=== PATIENT | male | born 1975 | race African-American/Black ===

== ENCOUNTER 2021-07-28 12:25 | Emergency (ER) | payer MEDICAID ==
[~2021-07-28] VITALS: Ht 170.2 cm; Wt 76.0 kg
[2021-07-28 13:04] VITALS: BP 168/122
== END 2021-07-28 13:21 | disposition home or self-care (01) ==
LOC: EDBD 12:25 → ED 12:25
DX: S90.01XA Contusion of right ankle, initial encounter (principal); I10 Essential (primary) hypertension; W22.8XXA Striking against or struck by other objects, initial encounter